=== PATIENT | male | born 1960 | race Caucasian/White ===

== ENCOUNTER 2021-06-29 18:41 | Inpatient (IN) ==
[2021-06-29] MEDS ORDERED: IBUPROFEN 200 MG/10 ML UDC ONE (18:58)
[2021-06-29] MEDS ORDERED: ACETAMINOPHEN 500 MG TAB PO STA (19:04)
[2021-06-29] MEDS ORDERED: SODIUM CHLORIDE 0.9% 1000ML 1,000 ML IV STA (19:04)
[2021-06-29] MEDS ORDERED: ACETAMINOPHEN 1000 MG/100 ML IV IV STA (19:16)
--- NOTE | 2021-06-29 19:34 | Emergency Department Note ---
Impression & Plan UTI (urinary tract infection), Elevated lactic acid level, Fever, Tachycardia ED Provider Note CHIEF COMPLAINT: Fever, chills, sweats HISTORY OF PRESENT ILLNESS: This 61-year-old male patient presents to the emergency department with complaints of fevers, chills, sweats. He states he woke up in the middle the night last night and thought perhaps his blood sugar was low. He drank orange juice and felt better, states he was able to sleep through the night. He was making breakfast this morning had the same episode and describes rigors. He states he had a Covid test last week that was negative. He saw his PCP today and had a Covid test along with flu that is still pending. He had a urinalysis done which was positive for blood. He has had a UTI in the past. Patient denies any cough, shortness of breath or sore throat. He denies any abdominal pain, vomiting or diarrhea. He states his urine has smelled "strong" but denies any dysuria. REVIEW OF SYSTEMS: A review of systems was performed with positives and pertinent negatives listed in the history of present illness. 10 systems were reviewed and are otherwise negative. ALLERGIES: see below MEDICATIONS: see below PMH: see below SOCIAL HISTORY: see below DDx: Viral syndrome, otitis, pharyngitis, pneumonia, influenza, meningitis, urinary tract infection, sepsis, bacteremia, as well as other pathologies. PHYSICAL EXAM: Vital signs reviewed. Noted to be tachycardic and febrile General: Generally well-appearing 61-year-old male, in no significant distress. HEENT: No scleral icterus, PERRLA, neck supple. Atraumatic. Mild erythema to the posterior oropharynx, moist mucous membranes Cardiovascular: Tachycardic rate and regular rhythm, no extra sounds. Pulmonary: Clear to auscultation bilaterally, normal work of breathing. Abdomen: Soft, nontender, nondistended, positive bowel sounds. Musculoskeletal: Atraumatic, no peripheral edema. Neurologic: Patient awake alert and oriented x 3, speech is clear Skin: Warm, dry, no rash EMERGENCY DEPARTMENT COURSE/MDM: This patient was evaluated and appeared to be in no significant distress. IV access was obtained and laboratory work was drawn. 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 IV fluids were initiated and patient was given Tylenol for symptomatic control. Laboratory work including blood cultures was drawn. Patient has an elevated WBC and lactate 2.6. Pt was medicated with IV Zosyn after UA was indicative of infection. Covid is negative. Chest x-ray is clear. Patient and were informed of the findings. Patient was discussed with the hospitalist service for admission and further management. MONITORING: An order for cardiac monitoring was placed and the patient is noted to be in a sinus tachycardia at 130 beats per minute. RADIOLOGY: See below EKG: Sinus tachycardia [address] segments. No PVC, no PAC. 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 Beliefs That Will Affect Care: None Current Living Situation: Spouse Other Information That Helps Us Care for You: No Feels Safe at Home: Yes Assistive Devices: None Allergies Allergies Allergy/AdvReac Type Severity Reaction Status Date / Time No Known Allergies Allergy Verified 06/29/21 19:24 Home Meds Home Medications Medication Instructions Recorded Confirmed fluticasone propionate 220 1 inh INHALATION BID 06/29/21 06/29/21 mcg/actuation HFA aerosol inhaler (Flovent HFA) omeprazole 20 mg capsule,delayed 20 mg PO DAILY 06/29/21 06/29/21 release simvastatin 20 mg tablet 20 mg PO DAILY 06/29/21 06/29/21 Previous Rx's Medication Instructions Recorded Lactobacillus acidophilus, 1 g PO TIDM 10 Days #30 ea 07/02/21 [place] 100 million cell granules packet (Floranex) ciprofloxacin HCl 500 mg tablet 500 mg PO BID #14 tab 07/02/21 loperamide 2 mg capsule 2 mg PO Q4H PRN #30 cap 07/02/21 Results & Data (ED) Vital Signs Vital Signs - 24 hr 06/29/21 18:52 Temperature 39.2 C H Temperature Source Skin Pulse Rate 137 H Respiratory Rate 24 Respiratory Effort / Characteristics Non-Labored Spontaneous Respiratory Depth Normal Respiratory Pattern Regular Blood Pressure 157/77 H Blood Pressure Mean 103 Pulse Oximetry 95 Oxygen Delivery Method Room Air Sepsis Recent Fever Within 48 Hours Yes Sepsis New/Unexplained Change in Mental Status N/A Sepsis Action Taken by Nursing No Action Required Home Medications Current Medication List: was personally reviewed by me Laboratory Data Attestation: I reviewed the patient's lab results. Result diagrams: 07/02/21 07:38 07/02/21 07:38 Lab Results 06/29/21 06/29/21 06/29/21 Range/Units 19:33 19:33 19:33 WBC 14.19 H (4.8-10.8) K/uL RBC 4.88 (4.7-6.1) M/uL Hgb 15.5 (14.0-18.0) g/dL Hct 44.1 (42-52) % MCV 90.4 (80-100) fL MCH 31.8 (25-34) pg MCHC 35.1 (32-36) g/dL RDW Std Deviation 40.7 (36.4-46.3) fL RDW Coeff of [place] 12.2 (11.5-14.5) % Plt Count 201 (130-400) K/uL MPV 9.2 (7.4-10.4) fL Immature Gran % (Auto) 0.2 % Neut % (Auto) 89.5 % Lymph % (Auto) 3.7 % [place] % (Auto) 6.5 % Eos % (Auto) 0.0 % Baso % (Auto) 0.1 % Neut # (Auto) 12.69 H (1.4-6.5) K/uL Lymph # (Auto) 0.53 L (1.2-3.4) K/uL [place] # (Auto) 0.92 H (0.11-0.59) K/uL Eos # (Auto) 0.00 (0-0.5) K/uL Baso # (Auto) 0.02 (0-0.2) K/uL Immature Gran # (Auto) 0.03 H (0.00-0.02) K/uL PT 12.1 H (9.0-12.0) Seconds INR 1.2 H (0.9-1.1) APTT 29.1 (21.0-31.0) Seconds PTT Ratio 1.1 Sodium 133 L (136-145) mmol/L Potassium 3.9 (3.5-5.1) mmol/L Chloride 102 (98-107) mmol/L Carbon Dioxide 23 (21-32) mmol/L Anion Gap 8.0 (3-11) BUN 25 H (7-18) mg/dl Creatinine 1.32 (0.6-1.4) mg/dl Est Cr Clr Drug Dosing 70.6 ml/min Est GFR ( Amer) 67.0 ml/min Est GFR (Non-Af Amer) 57.8 ml/min BUN/Creatinine Ratio 19.1 (10-20) Glucose 238 H (70-99) mg/dl Lactate (0.4-2.0) mmol/L Calcium 9.4 (8.5-10.1) mg/dl Magnesium 1.8 (1.8-2.4) mg/dl Total Bilirubin 0.9 (0.2-1) mg/dl AST 58 H (15-37) U/L ALT 108 H (12-78) Alkaline Phosphatase 68 (45-117) U/L Troponin I < 0.015 (0-0.045) ng/ml Total Protein 7.3 (6.4-8.2) gm/dl Albumin 3.6 (3.4-5.0) gm/dl Globulin 3.7 (2.5-4.0) gm/dl Albumin/Globulin Ratio 1.0 (0.9-2) Procalcitonin (0-0.5) ng/ml Urine Color Urine Appearance (Clear) Urine pH (4.5-7.5) Ur Specific [place] (1.000-1.030) Urine Protein (Negative) Urine Glucose (UA) (Negative) Urine Ketones (Negative) Urine Blood (Negative) Urine Nitrite (Negative) Urine Bilirubin (Negative) Urine Urobilinogen (Negative) Ur Leukocyte Esterase (Negative) Urine WBC (Auto) (0-5) /hpf Urine RBC (Auto) (0-4) /hpf U Hyaline Cast (Auto) (0-5) /lpf U Epithel Cells (Auto) (0-5) /lpf Urine Bacteria (Auto) (Negative) SARS-CoV-2 (PCR) (Negative) Influenza Type A (PCR) (Neg) Influenza Type B (PCR) (Neg) RSV (RT-PCR) (Neg) 06/29/21 06/29/2106/29/21 Range/Units 19:33 19:33 19:37 WBC (4.8-10.8) K/uL RBC (4.7-6.1) M/uL Hgb (14.0-18.0) g/dL Hct (42-52) % MCV (80-100) fL MCH (25-34) pg MCHC (32-36) g/dL RDW Std Deviation (36.4-46.3) fL RDW Coeff of [place] (11.5-14.5) % Plt Count (130-400) K/uL MPV (7.4-10.4) fL Immature Gran % (Auto) % Neut % (Auto) % Lymph % (Auto) % [place] % (Auto) % Eos % (Auto) % Baso % (Auto) % Neut # (Auto) (1.4-6.5) K/uL Lymph # (Auto) (1.2-3.4) K/uL [place] # (Auto) (0.11-0.59) K/uL Eos # (Auto) (0-0.5) K/uL Baso # (Auto) (0-0.2) K/uL Immature Gran # (Auto) (0.00-0.02) K/uL PT (9.0-12.0) Seconds INR (0.9-1.1) APTT (21.0-31.0) Seconds PTT Ratio Sodium (136-145) mmol/L Potassium (3.5-5.1) mmol/L Chloride (98-107) mmol/L Carbon Dioxide (21-32) mmol/L Anion Gap (3-11) BUN (7-18) mg/dl Creatinine (0.6-1.4) mg/dl Est Cr Clr Drug Dosing ml/min Est GFR ( Amer) ml/min Est GFR (Non-Af Amer) ml/min BUN/Creatinine Ratio (10-20) Glucose (70-99) mg/dl Lactate 2.6 H* (0.4-2.0) mmol/L Calcium (8.5-10.1) mg/dl Magnesium (1.8-2.4) mg/dl Total Bilirubin (0.2-1) mg/dl AST (15-37) U/L ALT (12-78) Alkaline Phosphatase (45-117) U/L Troponin I (0-0.045) ng/ml Total Protein (6.4-8.2) gm/dl Albumin (3.4-5.0) gm/dl Globulin (2.5-4.0) gm/dl Albumin/Globulin Ratio (0.9-2) Procalcitonin 1.67 H (0-0.5) ng/ml Urine Color Urine Appearance (Clear) Urine pH (4.5-7.5) Ur Specific [place] (1.000-1.030) Urine Protein (Negative) Urine Glucose (UA) (Negative) Urine Ketones (Negative) Urine Blood (Negative) Urine Nitrite (Negative) Urine Bilirubin (Negative) Urine Urobilinogen (Negative) Ur Leukocyte Esterase (Negative) Urine WBC (Auto) (0-5) /hpf Urine RBC (Auto) (0-4) /hpf U Hyaline Cast (Auto) (0-5) /lpf U Epithel Cells (Auto) (0-5) /lpf Urine Bacteria (Auto) (Negative) SARS-CoV-2 (PCR) NEGATIVE (Negative) Influenza Type A (PCR) Negative (Neg) Influenza Type B (PCR) Negative (Neg) RSV (RT-PCR) Negative (Neg) 06/29/21 06/29/21 Range/Units 20:14 21:25 WBC (4.8-10.8) K/uL RBC (4.7-6.1) M/uL Hgb (14.0-18.0) g/dL Hct (42-52) % MCV (80-100) fL MCH (25-34) pg MCHC (32-36) g/dL RDW Std Deviation (36.4-46.3) fL RDW Coeff of [place] (11.5-14.5) % Plt Count (130-400) K/uL MPV (7.4-10.4) fL Immature Gran % (Auto) % Neut % (Auto) % Lymph % (Auto) % [place] % (Auto) % Eos % (Auto) % Baso % (Auto) % Neut # (Auto) (1.4-6.5) K/uL Lymph # (Auto) (1.2-3.4) K/uL [place] # (Auto) (0.11-0.59) K/uL Eos # (Auto) (0-0.5) K/uL Baso # (Auto) (0-0.2) K/uL Immature Gran # (Auto) (0.00-0.02) K/uL PT (9.0-12.0) Seconds INR (0.9-1.1) APTT (21.0-31.0) Seconds PTT Ratio Sodium (136-145) mmol/L Potassium (3.5-5.1) mmol/L Chloride (98-107) mmol/L Carbon Dioxide (21-32) mmol/L Anion Gap (3-11) BUN (7-18) mg/dl Creatinine (0.6-1.4) mg/dl Est Cr Clr Drug Dosing ml/min Est GFR ( Amer) ml/min Est GFR (Non-Af Amer) ml/min BUN/Creatinine Ratio (10-20) Glucose (70-99) mg/dl Lactate 1.0 (0.4-2.0) mmol/L Calcium (8.5-10.1) mg/dl Magnesium (1.8-2.4) mg/dl Total Bilirubin (0.2-1) mg/dl AST (15-37) U/L ALT (12-78) Alkaline Phosphatase (45-117) U/L Troponin I (0-0.045) ng/ml Total Protein (6.4-8.2) gm/dl Albumin (3.4-5.0) gm/dl Globulin (2.5-4.0) gm/dl Albumin/Globulin Ratio (0.9-2) Procalcitonin (0-0.5) ng/ml Urine Color Yellow Urine Appearance Clear (Clear) Urine pH 5.0 (4.5-7.5) Ur Specific [place] 1.030 (1.000-1.030) Urine Protein 1+ H (Negative) Urine Glucose (UA) Negative (Negative) Urine Ketones Negative (Negative) Urine Blood 1+ H (Negative) Urine Nitrite Negative (Negative) Urine Bilirubin Negative (Negative) Urine Urobilinogen Negative (Negative) Ur Leukocyte Esterase 1+ H (Negative) Urine WBC (Auto) >30 H (0-5) /hpf Urine RBC (Auto) 5-10 H (0-4) /hpf U Hyaline Cast (Auto) 1-5 (0-5) /lpf U Epithel Cells (Auto) 0-5 (0-5) /lpf Urine Bacteria (Auto) 1+ H (Negative) SARS-CoV-2 (PCR) (Negative) Influenza Type A (PCR) (Neg) Influenza Type B (PCR) (Neg) RSV (RT-PCR) (Neg) Administered Medications Discontinued Medications Acetaminophen (Acetaminophen 500 Mg Tab) 1,000 mg PO ONE STA Stop: 06/29/21 19:05 Last Admin: 06/29/21 21:07 Dose: Not Given Documented by: [id number] Acetaminophen (Acetaminophen 1000 Mg/100 Ml Iv) 1,000 mg IV NOW STA Stop: 06/29/21 19:17 Last Admin: 06/29/21 19:40 Dose: 1,000 mg Documented by: [id number] Acetaminophen (Acetaminophen Susp 160 Mg/5 Ml Udc) Confirm Administered Dose 640 mg .ROUTE .STK-MED ONE Stop: 06/30/21 10:02 Last Admin: 06/30/21 10:11 Dose: 640 mg Documented by: [id number] Acetaminophen (Acetaminophen Susp 160 Mg/5 Ml Udc) 480 mg PO Q6H PRN PRN Reason: Pain or Fever Stop: 07/31/21 08:25 Last Admin: 07/01/21 08:39 Dose: 480 mg Documented by: [id number] Enoxaparin Sodium (Enoxaparin Inj 40 Mg/0.4 Ml Syr) 40 mg SQ Q24H ERASMO Stop: 07/30/21 07:59 Last Admin: 07/02/21 07:39 Dose: 40 mg Documented by: [id number] Admin: 07/01/21 09:38 Dose: 40 mg Documented by: [id number] Admin: 06/30/21 10:58 Dose: 40 mg Documented by: [id number] Fluticasone Furoate (Fluticasone Furoate 200mcg 14 Puffs/Inhaler) 1 puffs INH DAILY ERASMO Stop: 07/30/21 08:59 Last Admin: 07/02/21 08:23 Dose: 1 puffs Documented by: [id number] Admin: 07/01/21 09:50 Dose: Not Given Documented by: [id number] Admin: 06/30/21 11:00 Dose: 1 puffs Documented by: [id number] Sodium Chloride (Nss 1000ml) 1,000 mls @ 999 mls/hr IV .Q1H1M STA Stop: 06/29/21 20:04 Last Infusion: 06/29/21 21:07 Dose: 0 mls/hr Documented by: [id number] Admin: 06/29/21 19:38 Dose: 999 mls/hr Documented by: [id number] Sodium Chloride (Nss 1000ml) 1,000 mls @ 999 mls/hr IV .Q1H1M ONE Stop: 06/29/21 22:36 Last Infusion: 06/29/21 23:00 Dose: 0 mls/hr Documented by: [id number] Admin: 06/29/21 22:28 Dose: 999 mls/hr Documented by: [id number] Piperacillin Sod/Tazobactam Sod (Zosyn) 4.5 gm in 120 mls @ 240 mls/hr IV NOW ONE Stop: 06/29/21 22:06 Last Infusion: 06/29/21 23:00 Dose: 0 mls/hr Documented by: [id number] Admin: 06/29/21 22:27 Dose: 240 mls/hr Documented by: [id number] Sodium Chloride (Nss) 500 mls @ 500 mls/hr IV .Q1H ERASMO Stop: 06/30/21 01:45 Last Infusion: 06/30/21 01:53 Dose: 0 mls/hr Documented by: [id number] Admin: 06/30/21 00:53 Dose: 500 mls/hr Documented by: [id number] Sodium Chloride (Nss 1000ml) 1,000 mls @ 75 mls/hr IV .[id number] ERASMO Stop: 07/30/21 01:32 Last Infusion: 07/02/21 19:02 Dose: 0 mls/hr Documented by: [id number] Infusion: 07/02/21 10:53 Dose: 75 mls/hr Documented by: [id number] Admin: 07/02/21 07:44 Dose: 125 mls/hr Documented by: [id number] Infusion: 07/02/21 07:44 Dose: 125 mls/hr Documented by: [id number] Admin: 07/02/21 00:38 Dose: 125 mls/hr Documented by: [id number] Infusion: 07/02/21 00:38 Dose: 125 mls/hr Documented by: [id number] Admin: 07/01/21 16:43 Dose: 125 mls/hr Documented by: [id number] Infusion: 07/01/21 15:59 Dose: 125 mls/hr Documented by: [id number] Admin: 07/01/21 07:59 Dose: 125 mls/hr Documented by: [id number] Infusion: 07/01/21 07:15 Dose: 125 mls/hr Documented by: [id number] Admin: 06/30/21 23:15 Dose: 125 mls/hr Documented by: [id number] Infusion: 06/30/21 19:01 Dose: 125 mls/hr Documented by: [id number] Admin: 06/30/21 11:01 Dose: 125 mls/hr Documented by: [id number] Infusion: 06/30/21 10:01 Dose: 125 mls/hr Documented by: [id number] Admin: 06/30/21 02:01 Dose: 125 mls/hr Documented by: [id number] Vancomycin HCl 2,000 mg/ (Sodium Chloride) 540 mls @ 200 mls/hr IV ONE STA; Protocol Stop: 06/30/21 04:32 Last Infusion: 06/30/21 04:47 Dose: 0 mls/hr Documented by: [id number] Admin: 06/30/21 02:05 Dose: 200 mls/hr Documented by: [id number] Levofloxacin/Dextrose (Levaquin/D5w) 500 mg in 100 mls @ 100 mls/hr IV Q24H ERASMO Stop: 07/02/21 03:59 Last Infusion: 06/30/21 05:55 Dose: 0 mls/hr Documented by: [id number] Admin: 06/30/21 04:55 Dose: 100 mls/hr Documented by: [id number] Piperacillin Sod/Tazobactam (Sod 3.375 gm/ Dextrose) 115 mls @ 28.75 mls/hr IV Q8H ERASMO; Protocol Stop: 07/10/21 05:59 Last Infusion: 07/02/21 19:02 Dose: 0 mls/hr Documented by: [id number] Admin: 07/02/21 14:40 Dose: 28.8 mls/hr Documented by: [id number] Infusion: 07/02/21 10:06 Dose: 0 mls/hr Documented by: [id number] Admin: 07/02/21 06:06 Dose: 28.8 mls/hr Documented by: [id number] Infusion: 07/02/21 01:28 Dose: 0 mls/hr Documented by: [id number] Admin: 07/01/21 21:26 Dose: 28.8 mls/hr Documented by: [id number] Infusion: 07/01/21 18:27 Dose: 0 mls/hr Documented by: [id number] Admin: 07/01/21 14:20 Dose: 28.8 mls/hr Documented by: [id number] Infusion: 07/01/21 09:49 Dose: 0 mls/hr Documented by: [id number] Admin: 07/01/21 05:35 Dose: 28.8 mls/hr Documented by: [id number] Infusion: 07/01/21 01:01 Dose: 0 mls/hr Documented by: [id number] Admin: 06/30/21 21:51 Dose: 28.8 mls/hr Documented by: [id number] Infusion: 06/30/21 21:50 Dose: 0 mls/hr Documented by: [id number] Admin: 06/30/21 15:04 Dose: 28.8 mls/hr Documented by: [id number] Infusion: 06/30/21 10:56 Dose: 0 mls/hr Documented by: [id number] Admin: 06/30/21 06:07 Dose: 28.8 mls/hr Documented by: [id number] Ibuprofen (Ibuprofen 200 Mg/10 Ml Udc) Confirm Administered Dose 600 mg .ROUTE .STK-MED ONE Stop: 06/29/21 18:59 Last Admin: 06/29/21 18:30 Dose: 600 mg Documented by: [id number] Insulin Aspart (Insulin Aspart Per Unit) 0 units SC ACHS ERASMO Stop: 07/30/21 03:59 Last Admin: 07/02/21 17:54 Dose: Not Given Documented by: [id number] Admin: 07/02/21 12:30 Dose: Not Given Documented by: [id number] Admin: 07/02/21 08:26 Dose: Not Given Documented by: [id number] Admin: 07/01/21 21:23 Dose: Not Given Documented by: [id number] Cosigned by: [id number] Admin: 07/01/21 18:37 Dose: 3 units Documented by: [id number] Cosigned by: [id number] Admin: 07/01/21 13:41 Dose: 1 units Documented by: [id number] Cosigned by: [id number] Admin: 07/01/21 09:56 Dose: 3 units Documented by: [id number] Cosigned by: [id number] Admin: 06/30/21 21:02 Dose: Not Given Documented by: [id number] Admin: 06/30/21 18:33 Dose: Not Given Documented by: [id number] Admin: 06/30/21 13:46 Dose: 7 units Documented by: [id number] Cosigned by: [id number] Admin: 06/30/21 10:10 Dose: Not Given Documented by: [id number] Admin: 06/30/21 05:06 Dose: Not Given Documented by: [id number] Cosigned by: [id number] Insulin Aspart (Insulin Aspart Per Unit) 6 units SC NOW STA Stop: 06/30/21 05:01 Last Admin: 06/30/21 05:07 Dose: 6 units Documented by: [id number] Cosigned by: [id number] Lactobacillus Acidophilus (Lactobacillus Acidophilus 1 Gm Pack) 1 gm PO TIDM ERASMO Stop: 08/01/21 11:59 Last Admin: 07/02/21 17:55 Dose: Not Given Documented by: [id number] Admin: 07/02/21 12:36 Dose: 1 gm Documented by: [id number] Lansoprazole (Lansoprazole 30 Mg Soltab) 30 mg PO DAILY@0830 ERASMO Stop: 08/01/21 08:29 Last Admin: 07/02/21 09:40 Dose: 30 mg Documented by: [id number] Lorazepam (Lorazepam 1 Mg Tab) 0.5 mg SL NOW STA Stop: 06/30/21 01:33 Last Admin: 06/30/21 02:01 Dose: 0.5 mg Documented by: [id number] Pantoprazole Sodium (Pantoprazole 40 Mg Tab) 40 mg PO DAILY ERASMO Stop: 07/30/21 08:59 Last Admin: 07/01/21 09:39 Dose: 40 mg Documented by: [id number] Admin: 06/30/21 11:00 Dose: 40 mg Documented by: [id number] Simvastatin (Simvastatin 20 Mg Tab) 20 mg PO DAILY ERASMO Stop: 07/30/21 08:59 Last Admin: 06/30/21 12:04 Dose: Not Given Documented by: [id number] Simvastatin (Simvastatin 20 Mg Tab) 20 mg PO QPM ERASMO Stop: 07/30/21 20:59 Last Admin: 07/01/21 21:26 Dose: 20 mg Documented by: [id number] Admin: 06/30/21 21:03 Dose: 20 mg Documented by: [id number] Imaging Data Radiologist's Impression: Chest X-Ray 06/29/21 19:01 SINGLE VIEW CHEST CLINICAL HISTORY: Sepsis. FINDINGS: An AP, portable, upright chest radiograph is obtained. No prior studies are available for comparison at the time of dictation. The cardiomedia stinal silhouette is unremarkable. There is mild bibasilar atelectasis. The lungs and pleural spaces are otherwise clear. No pneumothorax is seen. The bony thorax is grossly intact. IMPRESSION: No active disease in the chest. ACT 112: Negative or not required by law. Electronically signed by: Smith Doshi M.D. 06/29/2021 8:20 PM Blood Pressure Blood Pressure Findings: Elevated blood pressure Blood Pressure Disposition: further management by hospitalist Discharge Plan Visit Data Chief Complaint: Illness ED Provider: Nissa Roldan Discharge Problem: UTI (urinary tract infection), Elevated lactic acid level, Fever, Tachycardia Patient Disposition: Admitted As Inpatient Discharge Instructions Interventions: ED Discharge Assessment Last Done: 06/30/21 03:00
[2021-06-29 19:47] LABS: Basophils # (auto) 0.02 K/uL (0-0.2); Basophils % (auto) 0.1 %; Hematocrit (blood only) 44.1 % (42-52); Hemoglobin 15.5 g/dL (14.0-18.0); Immature Granulocytes # (auto) 0.03 K/uL (0.00-0.02); Immature Granulocytes % (auto) 0.2 %; Lymphocytes # (auto) 0.53 K/uL (1.2-3.4); Lymphocytes % (auto) 3.7 %; Mean Corpuscular Hemoglobin 31.8 pg (25-34); Mean Corpuscular Hgb Conc 35.1 g/dL (32-36); Mean Corpuscular Volume 90.4 fL (80-100); Mean Platelet Volume 9.2 fL (7.4-10.4); Monocytes # (auto) 0.92 K/uL (0.11-0.59); Monocytes % (auto) 6.5 %; Neutrophils # (auto) 12.69 K/uL (1.4-6.5); Neutrophils % (auto) 89.5 %; Platelet Count 201 K/uL (130-400); RDW Coefficient of Variation 12.2 % (11.5-14.5); RDW Standard Deviation 40.7 fL (36.4-46.3); Red Blood Count 4.88 M/uL (4.7-6.1); White Blood Count 14.19 K/uL (4.8-10.8)
[2021-06-29 20:00] LABS: INR 1.2 (0.9-1.1); Partial Thromboplastin Ratio 1.1; Partial Thromboplastin Time 29.1 Seconds (21.0-31.0); Prothrombin Time 12.1 Seconds (9.0-12.0)
[2021-06-29 20:03] LABS: Alanine Aminotransferase 108 (12-78); Albumin Level 3.6 gm/dl (3.4-5.0); Aspartate Aminotransferase 58 U/L (15-37); BUN Creatinine Ratio 19.1 (10-20); Blood Urea Nitrogen 25 mg/dl (7-18); Calcium 9.4 mg/dl (8.5-10.1); Carbon Dioxide 23 mmol/L (21-32); Chloride 102 mmol/L (98-107); Creatinine Clr Calc Pharmacy 70.6 ml/min; Est GFR (Non-African American) 57.8 ml/min; Glucose 238 mg/dl (70-99); Magnesium 1.8 mg/dl (1.8-2.4); Potassium 3.9 mmol/L (3.5-5.1); Sodium 133 mmol/L (136-145)
[2021-06-29 20:08] LABS: Alkaline Phosphatase 68 U/L (45-117); Bilirubin,Total 0.9 mg/dl (0.2-1); Globulin 3.7 gm/dl (2.5-4.0); Total Protein 7.3 gm/dl (6.4-8.2); Troponin I < 0.015 ng/ml (0-0.045)
--- NOTE | 2021-06-29 20:22 | XRay Report ---
SINGLE VIEW CHEST CLINICAL HISTORY: Sepsis. FINDINGS: An AP, portable, upright chest radiograph is obtained. No prior studies are available for c omparison at the time of dictation. The cardiomediastinal silhouette is unremarkable. There is mild bibasilar atelectasis. The lungs and pleural spaces are otherwise clear. No pneumothorax is seen. The bony thorax is grossly intact. IMPRESSION: No active disease in the chest. ACT 112: Negative or not required by law. Electronically signed by: Smith Doshi M.D. 06/29/2021 8:20 PM
[2021-06-29 20:35] LABS: Influenza A virus by PCR Negative (Neg); Influenza B virus by PCR Negative (Neg); RSV by PCR Negative (Neg); SARS CoV2 RNA(COVID-19) InHosp NEGATIVE (Negative)
[2021-06-29 21:16] LABS: Appearance Urine Clear (Clear); Bacteria Urine Automated 1+ (Negative); Bilirubin Urine Negative (Negative); Blood Urine 1+ (Negative); Color Urine Yellow; Epithelial Cell Urine Auto 0-5 /lpf (0-5); Glucose Urine UA Negative (Negative); Ketones Urine Negative (Negative); Leukocyte Esterase Urine 1+ (Negative); Nitrite Urine Negative (Negative); Protein Urine 1+ (Negative); Urobilinogen Urine Negative (Negative); WBC Urine Automated >30 /hpf (0-5)
[2021-06-29] MEDS ORDERED: SODIUM CHLORIDE 0.9% 1000ML 1,000 ML IV ONE (21:36)
[2021-06-29] MEDS ORDERED: PIPERACILL/TAZOBAC CONSULT ACTIVE PRN (21:37)
[2021-06-29] MEDS ORDERED: PIPERACILLIN/TAZOBACTAM 4.5 GM/120 ML BAG IV ONE (21:37)
[2021-06-30] MEDS ORDERED: VANCOMYCIN CONSULT ACTIVE PRN (00:46)
[2021-06-30] MEDS ORDERED: SODIUM CHLORIDE 0.9% 500 ML IV SCH (00:46)
[2021-06-30] MEDS ORDERED: VANCOMYCIN HCL 1,000 MG in SODIUM CHLORIDE 0.9% 250 ML IV SCH (01:00)
[2021-06-30] MEDS ORDERED: LORazepam 1 MG TAB SL STA (01:32)
[2021-06-30] MEDS ORDERED: AZTREONAM 2,000 MG in DEXTROSE 5% 100 ML IV STA (01:39)
[2021-06-30] MEDS ORDERED: VANCOMYCIN HCL 2,000 MG in SODIUM CHLORIDE 0.9% 500 ML IV STA (01:51)
[2021-06-30] MEDS: SODIUM CHLORIDE 0.9% 1000ML 1,000 ML IV SCH ×3 (02:01→23:15)
--- NOTE | 2021-06-30 02:30 | History and Physical Report ---
DATE OF ADMISSION: 06/29/2021. CHIEF COMPLAINT: Shaking chills and UTI. HISTORY OF PRESENT ILLNESS: This is a 61-year-old male with past medical history significant for hyperlipidemia, prediabetes, dysphagia, history of esophageal stricture, status post dilatation, history of eosinophilic esophagitis, history of basal cell carcinoma, who presents with fever and chills at home of 1-day duration. The patient was treated for UTI one month back with Bactrim.White count is 14 and UA is positive again here in the ER. Started on Zosyn. Currently, resting comfortably and hemodynamically stable. Denies any burning micturition or blood in the urine. No diarrhea, no constipation, no abdominal pain, no chest pain, no shortness of breath, no cough. Appetite is okay. No headache, no blurred visions, no runny nose, no sore throat. ALLERGIES: No known drug allergies. PAST MEDICAL HISTORY: As mentioned above. PAST SURGICAL HISTORY: Colonoscopy, EGDs with transendoscopic dilatation, tonsillectomy and adenoidectomy. MEDICATIONS: The patient is on Flovent 1 inhalation b.i.d., omeprazole 20 mg p.o. daily, simvastatin 20 mg p.o. daily. FAMILY HISTORY: Significant for mother had diabetes, father has MA at age of 69 and dementia. SOCIAL HISTORY: . No smoking, no alcohol, no drug use. REVIEW OF SYSTEMS: As per HPI. Rest of the review of systems is negative. PHYSICAL EXAMINATION: GENERAL: The patient is of moderate build, not in acute distress. VITAL SIGNS: Temperature 36.9, pulse 88, respiratory rate 18, blood pressure 130/70, oxygen 96% on room air. HEENT: Pupils equal, round and reactive to light. Oral mucosa moist. NECK: No JVD, no neck masses. CARDIOVASCULAR: S1 and S2 heard. Regular rate and rhythm. No murmur, no gallop. RESPIRATORY SYSTEM: Normal AP diameter. No accessory muscle use. No wheezing, no crackles. ABDOMEN: Soft, bowel sounds present, nontender, no distention. No CVA tenderness. CENTRAL NERVOUS SYSTEM: Cranial nerves II-XII grossly intact, nonfocal. EXTREMITIES: No edema, no erythema. LABORATORY DATA: WBC 14.1, hemoglobin 15.5, hematocrit 44.1, platelets 201. PT 12.1, INR 1.2, APTT 29.1. Sodium 133, potassium 3.9, chloride 102, bicarbonate 23, BUN 25, creatinine 1.32. Serum glucose 238. Lactate 1, calcium 9.4, magnesium 1.8, total bilirubin 0.9, AST 58, ALT 108, alkaline phosphatase 68. Troponin I less than 0.015. Procalcitonin 1.67. Urinalysis positive for +1 leukocyte esterase. SARS-CoV-2 PCR is negative. Influenza A and B PCR negative. RSV PCR negative. IMAGING DATA: Chest x-ray, no acute active disease in the chest. EKG: Sinus tachycardia at a rate of 160, no significant change was found. ASSESSMENT AND PLAN: This 61-year-old male presents with recurrent urinary tract infection. 1. Recurrent urinary tract infection and sepsis: The patient was having shaking chills at home and high fever and white count is 14.19. He is hemodynamically stable currently. ER started on Zosyn, which will continue. The patient was treated with 1 week of Bactrim about a month ago for urinary tract infection. The patient may need to follow up with Urology for recurrent urinary tract infection for any possible underlying prostatitis. Will follow the cultures. Will continue the IV fluids. Closely monitor in the medical floor. His urine cultures on 05/26/2021 showed E. coli, pansensitive. Cultures done outpatient on 06/29/2021 are still pending. His procalcitonin is elevated.Later he developed shaking chills and tachycardia. lactic acid ok. Gave fluid bolus and added iv vanco and levaquin. Can narrow abx once cultures available. 2. History of hyperlipidemia: Continue statin. 3. History of gastroesophageal reflux disease: Continue omeprazole. 4. History of eosinophilic esophagitis: Currently stable. 5. History of prediabetes: The patient's glucose is at 238, will follow the HbA1c level. For now, will place him on insulin sliding scale. 6. Deep venous thrombosis prophylaxis: Lovenox. DISPOSITION: Closely monitor in the medical floor. PT, OT prior to discharge. Social service to help with discharge planning. Job ID: [id number] [facility]
[2021-06-30] MEDS ORDERED: ACETAMINOPHEN 325 MG TAB PO PRN (03:32)
[2021-06-30] MEDS ORDERED: ONDANSETRON INJ 2 MG/ML 2 ML VIAL IV PRN (03:32)
[2021-06-30] MEDS ORDERED: levoFLOXacin/D5W 500 MG/100 ML BAG IV SCH (04:00)
[2021-06-30] MEDS ORDERED: INSULIN ASPART PER UNIT SC STA (05:00)
[2021-06-30] MEDS: INSULIN ASPART PER UNIT SC SCH ×5 (05:06→21:02)
[2021-06-30 05:13] LABS: Hematocrit (blood only) 42.1 % (42-52); Hemoglobin 14.4 g/dL (14.0-18.0); Mean Corpuscular Hgb Conc 34.2 g/dL (32-36); Mean Corpuscular Volume 90.7 fL (80-100); Mean Platelet Volume 8.8 fL (7.4-10.4); Platelet Count 179 K/uL (130-400); RDW Coefficient of Variation 12.5 % (11.5-14.5); RDW Standard Deviation 41.2 fL (36.4-46.3); Red Blood Count 4.64 M/uL (4.7-6.1); White Blood Count 18.21 K/uL (4.8-10.8)
[2021-06-30 05:51] LABS: Basophils # (auto) 0.01 K/uL (0-0.2); Basophils % (auto) 0.1 %; Immature Granulocytes # (auto) 0.09 K/uL (0.00-0.02); Immature Granulocytes % (auto) 0.5 %; Lymphocytes # (auto) 0.89 K/uL (1.2-3.4); Lymphocytes % (auto) 4.9 %; Monocytes # (auto) 2.03 K/uL (0.11-0.59); Monocytes % (auto) 11.1 %; Neutrophils # (auto) 15.19 K/uL (1.4-6.5); Neutrophils % (auto) 83.4 %
[2021-06-30 05:56] LABS: Albumin Level 3.1 gm/dl (3.4-5.0); BUN Creatinine Ratio 19.6 (10-20); Bilirubin,Total 1.3 mg/dl (0.2-1); Calcium 8.8 mg/dl (8.5-10.1); Creatinine Clr Calc Pharmacy 87.1 ml/min; Est GFR (African American) 86.4 ml/min; Est GFR (Non-African American) 74.5 ml/min; Magnesium 1.8 mg/dl (1.8-2.4); Potassium 3.8 mmol/L (3.5-5.1); Total Protein 6.4 gm/dl (6.4-8.2)
[2021-06-30 05:57] LABS: Bilirubin Direct 0.4 mg/dl (0-0.2)
[2021-06-30] MEDS: PIPERACILLIN/TAZOBACTAM 3.375 GM in DEXTROSE 5% 100 ML IV SCH ×3 (06:07→21:51)
[2021-06-30 07:14] LABS: Estimated Average Glucose 140 mg/dl; Hemoglobin A1C 6.5 % (4.5-5.6)
[2021-06-30] MEDS ORDERED: ACETAMINOPHEN SUSP 160 MG/5 ML UDC ONE (10:01)
--- NOTE | 2021-06-30 10:51 | Ultrasound Report ---
US gallbladder LIMITED abdominal ultrasound CLINICAL HISTORY: ELEVATED LFT. COMPARISON: None. TECHNIQUE: Multiple grayscale and color images of the right upper quadrant of the abdomen. FINDINGS: The study is limited by overlying bowel gas. Pancreas: The imaged portion of the pancreas is within normal limits with no focal mass or peripancre atic fluid collection identified. The tail is obscured by overlying bowel gas. Liver: Liver is increased in echogenicity characteristic of fatty infiltration. There is no evidence for a focal mass. There is no intrahepatic biliary duct dilatation. Gallbladder: The gallbladder is well distended with no evidence of cholelithiasis, wall thickening o r pericholecystic edema. Common Bile Duct: (CBD): It is normal in size measuring 5 mm. Inferior Vena Cava (IVC): The imaged IVC is patent. Right kidney: There is no evidence for hydronephrosis, calculus or gross renal mass. The kidney is n ormal in size. IMPRESSION: Limited evaluation of the pancreas due to overlying bowel gas. Fatty infiltration of the liver. Otherwise, negative abdominal ultrasound. ACT 112: Negative or not required by law. Electronically signed by: Oliver Freeman M.D. 06/30/2021 10:50 AM
[2021-06-30] MEDS: ENOXAPARIN INJ 40 MG/0.4 ML SYR SQ SCH (10:58)
[2021-06-30] MEDS: PANTOprazole 40 MG TAB PO SCH (11:00)
[2021-06-30] MEDS: SIMVASTATIN 20 MG TAB PO SCH ×3 (11:00→21:03)
[2021-06-30] MEDS: FLUTICASONE FUROATE 200MCG 14 PUFFS/INHALER INH SCH (11:00)
[2021-06-30] MEDS ORDERED: Nursing to Pharmacy Communication SCH (12:00)
--- NOTE | 2021-06-30 17:18 | Communication Note ---
Date of Service: June 30, 2021 61-year-old male with significant past medical history of prediabetes, hyperlipidemia esophageal stricture status post dilatation and history of eosinophilic esophagitis is admitted with shaking chills secondary to UTI and noted to have gram-negative bacilli bacteremia. Sepsis on admission and has been getting intravenous Zosyn though received 1 dose of levofloxacin and vancomycin in the emergency room. Remains hemodynamically stable with tachycardia and afebrile now. Has been feeling better. We will continue current management and full progress note will be done by the hospitalist tomorrow. Dr Freddy Shafer
--- NOTE | 2021-06-30 17:46 | Electrocardiogram Report ---
Test Reason : Blood Pressure : / mmHG Vent. Rate : 116 BPM Atrial Rate : 116 BPM P-R Int : 152 ms QRS Dur : 088 ms QT Int : 304 ms P-R-T Axes : 034 040 010 degrees QTc Int : 422 ms Sinus tachycardia Otherwise normal ECG When compared with ECG of 29-JUL-2008 15:15, No significant change was found Confirmed by Corey Kennedy ([id number] on 06/30/2021 5:46:14 PM Referred By: REFERRED SELF Confirmed By:John Kennedy
[2021-07-01 05:19] LABS: Hematocrit (blood only) 38.6 % (42-52); Mean Corpuscular Hemoglobin 30.9 pg (25-34); Mean Corpuscular Hgb Conc 33.7 g/dL (32-36); Mean Corpuscular Volume 91.7 fL (80-100); Mean Platelet Volume 8.9 fL (7.4-10.4); Platelet Count 163 K/uL (130-400); RDW Coefficient of Variation 12.6 % (11.5-14.5); RDW Standard Deviation 42.5 fL (36.4-46.3); Red Blood Count 4.21 M/uL (4.7-6.1); White Blood Count 12.73 K/uL (4.8-10.8)
[2021-07-01] MEDS: PIPERACILLIN/TAZOBACTAM 3.375 GM in DEXTROSE 5% 100 ML IV SCH ×3 (05:35→21:26)
[2021-07-01 05:40] LABS: Basophils # (auto) 0.02 K/uL (0-0.2); Basophils % (auto) 0.2 %; Eosinophils # (auto) 0.03 K/uL (0-0.5); Eosinophils % (auto) 0.2 %; Immature Granulocytes # (auto) 0.04 K/uL (0.00-0.02); Immature Granulocytes % (auto) 0.3 %; Lymphocytes # (auto) 1.94 K/uL (1.2-3.4); Lymphocytes % (auto) 15.2 %; Monocytes # (auto) 2.35 K/uL (0.11-0.59); Monocytes % (auto) 18.5 %; Neutrophils # (auto) 8.35 K/uL (1.4-6.5); Neutrophils % (auto) 65.6 %; RBC Morphology Unremarkable
[2021-07-01 05:49] LABS: BUN Creatinine Ratio 13.2 (10-20); Calcium 8.4 mg/dl (8.5-10.1); Creatinine Clr Calc Pharmacy 85.5 ml/min; Est GFR (African American) 84.5 ml/min; Est GFR (Non-African American) 72.9 ml/min; Magnesium 2.1 mg/dl (1.8-2.4)
[2021-07-01] MEDS: SODIUM CHLORIDE 0.9% 1000ML 1,000 ML IV SCH ×2 (07:59→16:43)
[2021-07-01] MEDS ORDERED: ACETAMINOPHEN SUSP 160 MG/5 ML UDC PO PRN (08:26)
[2021-07-01] MEDS: ENOXAPARIN INJ 40 MG/0.4 ML SYR SQ SCH (09:38)
[2021-07-01] MEDS: PANTOprazole 40 MG TAB PO SCH (09:39)
[2021-07-01] MEDS: FLUTICASONE FUROATE 200MCG 14 PUFFS/INHALER INH SCH (09:50)
[2021-07-01] MEDS: INSULIN ASPART PER UNIT SC SCH ×4 (09:56→21:23)
--- NOTE | 2021-07-01 18:27 | Hospitalist Progress Note ---
Date of Service July 01, 2021 Assessment & Plan (1) UTI (urinary tract infection): Plan: Patient is a 61 yr-old male presents with recurrent urinary tract infection. Recurrent urinary tract infection Septicemia Gram-negative bacteremia Was treated with 1 week course of Bactrim about a month ago as per records Blood culture growing gram-negative bacilli Urine culture growing E. coli Continue Zosyn for now Patient reports having dysphagia to pills chronically Hyperlipidemia: Continue statin. GERD on PPI H/O Eosinophilic esophagitis: stable Diabetes Mellitus II New Diagnosis HbA1C 6.5 Diet controlled Continue ISS for now . DVT Px: Lovenox SQ Code Status Full Code Admission and Anticipated Discharge Date Admission Date: June 30, 2021 Subjective Patient is seen and examined at bedside States feeling much better today Fever, chills resolved Denies any dysuria, hematuria, abdominal pain, chest pain, shortness of breath Blood cultures pending Review of Systems Review of Systems: All systems reviewed & are unremarkable except as noted in Subjective Physical Exam Physical Exam: Physical Exam: Vitals signs as noted above General Appearance:Moderately built and nourished, no apparent distress Head: normocephalic, Atraumatic Eyes: normal inspection, EOMI Neck: supple, Trachea midline Respiratory/Chest: Normal breath sounds, CTA Cardiovascular: S1, S2, No murmur Abdomen/GI:Soft, Non tender, Bowel sounds present Extremities/Musculoskeletal:normal inspection, no edema Neurologic/Psych:AAOX3, grossly no focal neurological deficits Skin: normal color, warm Results & Data Results & Data ([facility]) Vital Signs (Past 12 Hours) Vital Signs Temp Pulse Resp BP Pulse Ox 07/01/21 16:00 36.5 C 91 H 18 133/72 97 07/01/21 11:54 36.2 C L 86 18 119/74 95 07/01/21 08:13 37.1 C 93 H 20 120/69 94 Laboratory Results Short CBC 07/01/21 Range/Units 05:12 WBC 12.73 H (4.8-10.8) K/uL Hgb 13.0 L (14.0-18.0) g/dL Hct 38.6 L (42-52) % Plt Count 163 (130-400) K/uL BMP 07/01/21 05:12 Sodium 138 Potassium 4.0 Chloride 108 H Carbon Dioxide 26 BUN 14 Creatinine 1.09 Glucose 136 H Calcium 8.4 L
[2021-07-01] MEDS: SIMVASTATIN 20 MG TAB PO SCH (21:26)
[2021-07-02] MEDS: SODIUM CHLORIDE 0.9% 1000ML 1,000 ML IV SCH ×2 (00:38→07:44)
[2021-07-02] MEDS ORDERED: Nursing to Pharmacy Communication SCH (05:15)
[2021-07-02] MEDS: PIPERACILLIN/TAZOBACTAM 3.375 GM in DEXTROSE 5% 100 ML IV SCH ×2 (06:06→14:40)
[2021-07-02] MEDS: ENOXAPARIN INJ 40 MG/0.4 ML SYR SQ SCH (07:39)
[2021-07-02 07:57] LABS: Hematocrit (blood only) 41.4 % (42-52); Hemoglobin 14.1 g/dL (14.0-18.0); Mean Corpuscular Hemoglobin 30.9 pg (25-34); Mean Corpuscular Hgb Conc 34.1 g/dL (32-36); Mean Corpuscular Volume 90.8 fL (80-100); Mean Platelet Volume 9.3 fL (7.4-10.4); Platelet Count 205 K/uL (130-400); RDW Coefficient of Variation 12.5 % (11.5-14.5); RDW Standard Deviation 41.5 fL (36.4-46.3); Red Blood Count 4.56 M/uL (4.7-6.1); White Blood Count 8.53 K/uL (4.8-10.8)
[2021-07-02] MEDS: FLUTICASONE FUROATE 200MCG 14 PUFFS/INHALER INH SCH (08:23)
[2021-07-02] MEDS: INSULIN ASPART PER UNIT SC SCH ×3 (08:26→17:54)
[2021-07-02] MEDS ORDERED: LANSOPRAZOLE 30 MG SOLTAB PO SCH (08:30)
[2021-07-02 08:32] LABS: BUN Creatinine Ratio 14.6 (10-20); Calcium 8.8 mg/dl (8.5-10.1); Creatinine Clr Calc Pharmacy 105.6 ml/min; Est GFR (African American) 107.5 ml/min; Est GFR (Non-African American) 92.7 ml/min; Potassium 3.6 mmol/L (3.5-5.1)
[2021-07-02] MEDS: LACTOBACILLUS ACIDOPHILUS 1 GM PACK PO SCH ×2 (12:36→17:55)
[2021-07-02] MEDS ORDERED: LOPERAMIDE HCL 2 MG CAP PO PRN (14:33)
--- NOTE | 2021-07-02 16:14 | Hospitalist Progress Note ---
Date of Service July 02, 2021 Assessment & Plan (1) UTI (urinary tract infection): Plan: Patient is a 61 yr-old male presents with recurrent urinary tract infection. Recurrent urinary tract infection Septicemia Gram-negative bacteremia Was treated with 1 week course of Bactrim about a month ago as per records Blood culture growing gram-negative bacilli Urine culture growing E. coli Continue Zosyn >>transition to Ciprofloxacin to complete the course Patient reports having dysphagia to pills chronically Hyperlipidemia: Continue statin. GERD on PPI H/O Eosinophilic esophagitis: stable Diabetes Mellitus II New Diagnosis HbA1C 6.5 Diet controlled Continue ISS while hospitalized Patient prefers to not be initiated on any meds for now Advised to follow-up with PCP . DVT Px: Lovenox SQ Code Status Full Code Admission and Anticipated Discharge Date Admission Date: June 30, 2021 Subjective Patient is seen and examined at bedside States having minimal diarrhea today Had headache earlier today which currently resolved Family at bedside Denies any dysuria, hematuria, abdominal pain, chest pain, shortness of breath Review of Systems Review of Systems: All systems reviewed & are unremarkable except as noted in Subjective Physical Exam Physical Exam: Physical Exam: Vitals signs as noted above General Appearance:Moderately built and nourished, no apparent distress Head: normocephalic, Atraumatic Eyes: normal inspection, EOMI Neck: supple, Trachea midline Respiratory/Chest: Normal breath sounds, CTA Cardiovascular: S1, S2, No murmur Abdomen/GI:Soft, Non tender, Bowel sounds present Extremities/Musculoskeletal:normal inspection, no edema Neurologic/Psych:AAOX3, grossly no focal neurological deficits Skin: normal color, warm Results & Data Results & Data ([facility]) Vital Signs (Past 12 Hours) Vital Signs Temp Pulse Resp BP BP Pulse Ox 07/02/21 15:00 36.9 C 87 20 129/78 97 07/02/21 11:00 36.7 C 94 H 20 159/87 H 96 07/02/21 07:00 36.6 C 93 H 18 155/84 H 97 07/02/21 05:15 37.2 C 97 H 18 153/80 H 96 Laboratory Results Short CBC 07/02/21 Range/Units 07:38 WBC 8.53 (4.8-10.8) K/uL Hgb 14.1 (14.0-18.0) g/dL Hct 41.4 L (42-52) % Plt Count 205 (130-400) K/uL BMP 07/02/21 07:38 Sodium 141 Potassium 3.6 Chloride 111 H Carbon Dioxide 25 BUN 13 Creatinine 0.88 Glucose 133 H Calcium 8.8
--- NOTE | 2021-07-02 16:49 | Discharge Summary ---
Date of Service July 02, 2021 Admission Exam Per Admitting Provider PHYSICAL EXAMINATION: GENERAL: The patient is of moderate build, not in acute distress. VITAL SIGNS: Temperature 36.9, pulse 88, respiratory rate 18, blood pressure 130/70, oxygen 96% on room air. HEENT: Pupils equal, round and reactive to light. Oral mucosa moist. NECK: No JVD, no neck masses. CARDIOVASCULAR: S1 and S2 heard. Regular rate and rhythm. No murmur, no gallop. RESPIRATORY SYSTEM: Normal AP diameter. No accessory muscle use. No wheezing, no crackles. ABDOMEN: Soft, bowel sounds present, nontender, no distention. No CVA tenderness. CENTRAL NERVOUS SYSTEM: Cranial nerves II-XII grossly intact, nonfocal. EXTREMITIES: No edema, no erythema. Principal Diagnosis Urinary tract infection E.Coli Septicemia/Bacteremia Discharge Data Allergies Allergy/AdvReac Type Severity Reaction Status Date / Time No Known Allergies Allergy Verified 06/29/21 19:24 Consultations 06/29/21 22:32 ED Decision to Admit Stat Ordered Studies 06/30/21 09:30 US gallbladder Urgent Diabetes Follow up Diabetes Follow-up Needed for Newly Diagnosed Diabetes Hospital Course (1) UTI (urinary tract infection): Patient is a 61 yr-old male presents with recurrent urinary tract infection. Recurrent urinary tract infection Septicemia Gram-negative bacteremia Was treated with 1 week course of Bactrim about a month ago as per records Blood culture growing gram-negative bacilli Urine culture growing E. coli Continue Zosyn >>transition to Ciprofloxacin to complete the course Patient reports having dysphagia to pills chronically Hyperlipidemia: Continue statin. GERD on PPI H/O Eosinophilic esophagitis: stable Diabetes Mellitus II New Diagnosis HbA1C 6.5 Diet controlled Continue ISS while hospitalized Patient prefers to not be initiated on any meds for now Advised to follow-up with PCP . DVT Px: Lovenox SQ Code Status Full Code Total Time Total Time Spent Total Time Spent (In Minutes): 40 minutes Discharge Plan Discharge Items Patient Disposition: Home - Self-Care Reason For Visit: ILLNESS Discharge Diagnosis: Urinary tract infection E.Coli Septicemia/Bacteremia Activity: Per Instructions section Exercise/Sports: Gradually increase as tolerated Non-emergency contact: Primary Care Provider Call non-emergency contact if: you have any medication questions, your symptoms worsen, your pain is concerning for you and you have a fever Follow-up/Referrals: NewDonis stoddard DO [Primary Care Provider] - (Date & Time 07/07/2021 3:00 PM Provider Erinn Garcia DO Department [facility] ) Diet: Carb Consistent or DM2 and Heart Healthy Addtl Attending Provider Instructions: Follow-up with your primary care physician on 07/07/2021 3:00 PM --Complete the antibiotic course as prescribed. --Discussed with your physician for management of diabetes mellitus as advised. Seek immediate medical attention if your symptoms reoccur or worsen Please take all medications as instructed on discharge list below. Please call if you have any questions or problems. You can reach a [facility] hospitalist on duty at [facility] 24 hours a day by calling Pending Studies at Discharge: No Stand-Alone Forms: My [facility], Smoking Cessation Medications and DC Order Prescriptions: New loperamide 2 mg Capsule 2 mg PO Q4H PRN (Reason: loose stool) Qty: 30 RF: 0 Lactobacillus acidoph-L.bulgar [Floranex] 100 million cell Granules In Packet 1 g PO TIDM 10 Days Qty: 30 RF: 0 ciprofloxacin HCl 500 mg tablet 500 mg PO BID Qty: 14 RF: 0 Continued simvastatin 20 mg tablet 20 mg PO DAILY RF: 0 omeprazole 20 mg capsule,delayed release(DR/EC) 20 mg PO DAILY RF: 0 Flovent HFA 220 mcg/actuation HFA aerosol inhaler 1 inh INHALATION BID RF: 0 Discharge Orders: Discharge Order (Routine); Ordered 07/02/21 Ordered By: Aguila Pabon/Other Patient Handouts: 5 Steps for Eating Healthier, Type 2 Diabetes Admission Data Admit Date/Time: 06/30/21 00:09 Attending Provider: Aguila Emanuel Admit Provider: Carl Ortiz Primary Care Provider: Donis Freed Other Providers: Carl Ortiz Other Interventions: Discharge Summary Assessment (RN) Last Done: 07/02/21 16:45
== END 2021-07-02 18:50 | disposition home or self-care (01) | DRG 872 ==
LOC: ED 18:41 → SUATTDRO 06-30 00:09 → EDINP 06-30 00:09 → 2N 06-30 03:00